=== PATIENT | male | born 1960 | race Caucasian/White ===

== ENCOUNTER 2022-04-19 21:35 | Emergency (ER) | payer OTHER, SELFPAY ==
--- NOTE | ~2022-04-19 | XR_ITS ---
EXAMINATION: XR foot LT min 3V DATE: 04/19/2022 22:04 INDICATION: Left foot injury. TECHNIQUE: 4 views of left foot were obtained. COMPARISON: None. FINDINGS: Bone alignment is normal. No fracture. There is mild osteoarthritis of talonavicular joint and some of the interphalangeal joints. There are enthesophytes at the posterior and plantar aspects of calcaneal tuberosity. IMPRESSION: 1. Mild polyarticular osteoarthritis. Reviewed, dictated and finalized at location A. [facility]
[2022-04-19 21:38] VITALS: BP 198/61; PULSE 58; RESP 16; TEMP 36.7; O2SAT 97
--- NOTE | 2022-04-19 22:34 | ED.LOWEXIN ---
HPI - Extremity Injury (Lower) General Chief Complaint: Extremity Injury, Lower Stated Complaint: left foot injury Time Seen by Provider: 04/19/22 21:42 History of Present Illness HPI Narrative: 61-year-old male presents to the emergency room for evaluation of left foot pain. States 1 week ago he dropped a sewage pump on his left foot. Presented to the emergency room because the pain has not subsided. Patient has not attempted to take Tylenol or ibuprofen, did not try ice has not elevated his foot or use any kind of compression device to alleviate his inflammation. Related Data Allergies Allergy/AdvReac Type Severity Reaction Status Date / Time NKDA Allergy Mild Uncoded 01/28/10 22:03 Review of Systems Review of Systems: CONSTITUTIONAL: Denies fever, chills, or sweats. EYES: Denies visual changes, redness, or discharge. ENT: Denies rhinorrhea, congestion, sore throat, or otalgia. CARDIOVASCULAR: Denies chest pain, palpitations, or edema. RESPIRATORY: Denies cough or dyspnea. GASTROINTESTINAL: Denies abdominal pain, nausea, vomiting, or diarrhea. GENITOURINARY: Denies dysuria or hematuria. SKIN: Denies rash or itching. MUSCULOSKELETAL: Reports left foot pain NEUROLOGIC: Denies headache, numbness, dizziness, or weakness. PSYCHIATRIC: Denies anxiety or depression. Exam Narrative: GENERAL: Well-appearing, well-nourished, no physical limitations, and in no acute distress. HEAD: Normocephalic, atraumatic. EYES: Conjunctivae normal, PERRLA and EOMI. CHEST: Clear to auscultation. No respiratory distress. No wheezes rales or rhonchi. HEART: Regular rate and rhythm. No murmur heard. Normal peripheral pulses. EXTREMITIES: left foot: Tenderness to the dorsal surface, soft tissue swelling noted over the first and second metatarsals, no obvious bony abnormality. No ecchymosis. Neurovascular is intact distally. Limited range of motion due to swelling and pain SKIN: Warm, dry, no rash. No noted wounds NEURO: No focal deficits. Alert and oriented x3. MAEW. CN's II-XI intact bilaterally, normal gait PSYCH: Cooperative. Normal mood and affect. Course Vital Signs Vital signs: Vital Signs Temperature 36.7 C 04/19/22 21:38 Pulse Rate 58 L 04/19/22 21:38 Respiratory Rate 16 04/19/22 21:38 Blood Pressure 198/61 H 04/19/22 21:38 Pulse Oximetry 97 04/19/22 21:38 Oxygen Delivery Room Air 04/19/22 21:38 Temperature 36.7 C 04/19/22 21:38 Pulse Rate 58 L 04/19/22 21:38 Respiratory Rate 16 04/19/22 21:38 Blood Pressure 198/61 H 04/19/22 21:38 Pulse Oximetry 97 04/19/22 21:38 Oxygen Delivery Room Air 04/19/22 21:38 Discharge Plan Discharge Clinical Impression: Contusion of foot, left Patient Disposition: Home, Self-Care Condition: Stable Instructions: Antibiotic Form, Contusion in Adults (ED) Prescriptions: New naproxen 500 mg tablet 500 mg PO BID 7 Days Qty: 14 0RF Follow-up/Referrals: PHYSICIAN NOT ON STAFF,NONSTAFF [Primary Care Provider] - Time of Disposition: 22:37
[2022-04-19 22:36] VITALS: BP 179/65; PULSE 57; RESP 18
== END 2022-04-19 22:48 | disposition home or self-care (01) ==
PROVIDERS: Emergency Provider Nurse Practitioner Family
DX: S90.32XA Contusion of left foot, initial encounter (principal); W22.8XXA Striking against or struck by other objects, initial encounter
CPT/HCPCS: 73630; 99283

== ENCOUNTER 2022-10-17 16:33 | Emergency (ER) | payer OTHER, SELFPAY ==
--- NOTE | ~2022-10-17 | XR_ITS ---
EXAMINATION: XR humerus LT DATE: 10/17/2022 17:00 INDICATION: Left upper arm injury and lump. TECHNIQUE: 2 views of left humerus on 3 radiographs were obtained. COMPARISON: None. FINDINGS: Bone alignment is normal. No fracture. There are suture anchors in humeral head. There is m ild osteoarthritis of acromioclavicular joint. IMPRESSION: 1. No fracture. Reviewed, dictated and finalized at location A. IMPRESSION: 1. No fracture.
--- NOTE | 2022-10-17 16:36 | ED.UPPEXIN ---
HPI - Extremity Injury (Upper) General Chief Complaint: Extremity Injury, Upper Stated Complaint: Left Arm Pain Time Seen by Provider: 10/17/22 16:35 Source: patient Mode of arrival: ambulatory Limitations: no limitations History of Present Illness HPI narrative: Sascha is a 62-year-old male patient presenting to clinic today with complaints of left arm pain/injury that occurred prior to arrival. He reports he was chasing chickens and fell over a tank. States he hit his left upper arm on the tank. Is having pain over this area with swelling. No bleeding noted Related Data Home Medications Medication Instructions Recorded Confirmed atorvastatin 20 mg tablet mg 10/17/22 clopidogrel 75 mg tablet mg 10/17/22 dapagliflozin propanediol 10 mg mg 10/17/22 tablet (Farxiga) diltiazem HCl 180 mg mg PO 10/17/22 capsule,extended release 24 hr, controlled (DILT-XR) lisinopril 10 mg tablet mg 10/17/22 metformin 1,000 mg tablet mg 10/17/22 pantoprazole 40 mg tablet,delayed mg PO 10/17/22 release Allergies Allergy/AdvReac Type Severity Reaction Status Date / Time NKDA Allergy Mild Other Uncoded 10/17/22 16:40 Review of Systems Review of Systems: Pertinent positives per HPI. Patient denies any fever, chills, rash, headache, visual changes, dizziness, cough, runny nose, sore throat, shortness of breath, chest pain, palpitations, nausea, vomiting, diarrhea, constipation, abdominal pain, or any urinary issues. PMFSH Comments At the time of my signature, I reviewed and agree with the nursing past medical, surgical, social, and family history. There is no relevant family history pertinent to the patient complaint. Exam Narrative: General: Well-developed, obese, in no apparent distress Head: Normocephalic, atraumatic. Cardio: Regular rate and rhythm, s1 and s2 normal, no murmur appreciated. Resp: Clear to auscultation bilaterally, no rhonchi, rales, wheezing or rubs. Musculoskeletal: No deformity, tender to palpation over the left upper distal posterior arm, firm hematoma palpable, grossly normal range of motion, muscle strength strong and equal, peripheral pulse strong, no cyanosis, normal gait and station Course Course Emergency Course: Portions of this record may have been created with voice recognition software. Level of Care: Express Care Visit Vital Signs Vital signs: Vital signs reviewed MDM - Extremity Injury (Upper) MDM Narrative Medical decision making narrative: At the time of visit patient is resting comfortably on the exam table. X-ray of his left humerus was negative for any fracture or malalignment. I suspect patient has hematoma. Supportive measures were discussed with the patient he voiced understanding discharge instructions agrees to treatment plan. Differential Diagnosis Differential diagnosis: Likely other (Contusion, hematoma, humerus fracture, elbow fracture) Discharge Plan Discharge Clinical Impression: Hematoma Patient Disposition: Home, Self-Care Condition: Stable Instructions: Antibiotic Form, Hematoma (ED) Additional Instructions: X-rays negative for any sign of fracture or malalignment in the upper arm or elbow Rest, ice, elevate, and wear justin wrap as directed Tylenol/motrin for pain as discussed. Follow up with your PCP if symptoms persist more than 1 week. Prescriptions: No Action atorvastatin 20 mg tablet clopidogrel 75 mg tablet pantoprazole 40 mg tablet,delayed release (DR/EC) PO metformin 1,000 mg tablet lisinopril 10 mg tablet diltiazem HCl [DILT-XR] 180 mg capsule,ext.rel 24h degradable PO Farxiga 10 mg tablet Follow-up/Referrals: UNKNOWN,DOCTOR [Non-Staff] - Time of Disposition: 17:06 Quality NIHSS Nursing Documentation ED NIHSS nursing documentation: reviewed/agree
[2022-10-17 16:48] VITALS: BP 145/47; PULSE 63; RESP 18; TEMP 36.1; O2SAT 97
== END 2022-10-17 17:15 | disposition home or self-care (01) ==
LOC: EXPCOLL 16:41
PROVIDERS: Emergency Provider Nurse Practitioner Family
DX: S40.022A Contusion of left upper arm, initial encounter (principal); W18.09XA Striking against other object with subsequent fall, initial encounter; I48.91 Unspecified atrial fibrillation; E78.00 Pure hypercholesterolemia, unspecified; I10 Essential (primary) hypertension; M19.90 Unspecified osteoarthritis, unspecified site; E11.9 Type 2 diabetes mellitus without complications
CPT/HCPCS: 73060; 99213; G0463